=== PATIENT | male | born 1975 | race Two or more races ===

== ENCOUNTER 2023-10-21 13:14 | Emergency (ER) | payer OTHER ==
[~2023-10-21] VITALS: Ht 172.7 cm; Wt 108.9 kg
[2023-10-21] MEDS ORDERED: ENALAPRILAT DIHYDRATE 1.25 MG/ML VIAL IV ONE ×2 (14:30→15:58)
[2023-10-21 16:58] LABS: ALBUMIN 4.1 gm/dL (3.4-5.0); BILIRUBIN TOTAL 0.54 mg/dL (0.3-1.2); CALCIUM 9.5 mg/dL (8.5-10.1); CREATININE SERUM 0.96 mg/dL (0.70-1.30); GFR 83.96; GLOBULINA 3.7 G/DL (2.4-3.5); POTASSIUM 4.39 mEq/L (3.5-5.1); TOTAL PROTEIN 7.8 gm/dL (6.4-8.2)
[2023-10-21 17:49] LABS: HEMATOCRIT 48.4 % (39.0-48.0); HEMOGLOBIN 16.3 g/dL (13-16.00); MEAN CORPUSCULAR HEMOGLOBIN 29.2 pg (27.00-32.0); MEAN CORPUSCULAR HGB CONC 33.6 g/dl (32.0-36.0); PLATELET COUNT 174 K/uL (150-450); RED BLOOD COUNT 5.56 M/uL (4.00-6.00)
[2023-10-21] MEDS ORDERED: ZESTRIL5 MG PO (18:52)
[2023-10-21] MEDS ORDERED: KETOROLAC TROMETHAMINE 60 MG VIAL IM ONE ×2 (19:00→19:17)
== END 2023-10-21 19:19 | disposition home or self-care (01) ==
LOC: ER 13:15
PROVIDERS: Nurse Practitioner Family
DX: R53.81 Other malaise (principal); I10 Essential (primary) hypertension